=== PATIENT | female | born 1945 | race Caucasian/White ===

== ENCOUNTER 2021-03-07 19:41 | Observation (INO) | payer MEDICARE ==
[~2021-03-07] VITALS: Ht 170.2 cm; Wt 90.7 kg
[2021-03-07 22:37] LABS: HEMOGLOBIN 14.9 gm/dl (12.3-15.3); RED BLOOD COUNT 5.05 M/UL (4.00-5.10); WHITE BLOOD COUNT 16.2 K/UL (4.5-11.0)
[2021-03-07 23:13] LABS: BUN/CREATININE RATIO 23 (0-10)
[2021-03-08] MEDS ORDERED: PROVENTIL HFA6.7 GM INH (02:09)
[2021-03-08] MEDS ORDERED: DECADRON6 MG PO (02:09)
== END 2021-03-08 08:15 | disposition left against medical advice (07) ==
LOC: ER1 19:41 → CDU 03-08 05:53
PROVIDERS: Physician Assistant; ADMIT Internal Medicine
PROC: XW033G6 Introduction of REGN-COV2 Monoclonal Antibody into Peripheral Vein, Percutaneous Approach, New Technology Group 6 (ICD-10-PCS; principal; 2021-03-08)
DX: U07.1 COVID-19 (principal); E87.1 Hypo-osmolality and hyponatremia; U09.9 Post COVID-19 condition, unspecified; E86.0 Dehydration; I10 Essential (primary) hypertension; E11.9 Type 2 diabetes mellitus without complications; I25.2 Old myocardial infarction; Z98.890 Other specified postprocedural states; Z88.0 Allergy status to penicillin; Z88.2 Allergy status to sulfonamides; Z82.49 Family history of ischemic heart disease and other diseases of the circulatory system; Z90.10 Acquired absence of unspecified breast and nipple; Z23 Encounter for immunization; Z79.82 Long term (current) use of aspirin; Z79.899 Other long term (current) drug therapy; Z79.4 Long term (current) use of insulin
CPT/HCPCS: 71045; 80053; 82550; 82553; 82962; 83874; 83880; 84484; 85025; 85379; 93005; 96374; 99285; J1650; J2930; M0243; U0002